=== PATIENT | female | born 1965 | race Caucasian/White ===

== ENCOUNTER 2021-10-22 06:03 | Inpatient (IN) ==
[2021-10-22] MEDS ORDERED: ceFAZolin 2,000 MG in Water for inj. (sterile) 20 ML IVP ONE (06:27)
[2021-10-22] MEDS ORDERED: Ringers Solution, Lactated 1,000 ML IVC SCH (06:30)
[2021-10-22] MEDS ORDERED: *HR* Propofol 200 MG/20 ML VIAL IVP ONE (06:54)
[2021-10-22] MEDS ORDERED: *HR* Midazolam HCl 2 MG/2 ML VIAL ONE (06:54)
[2021-10-22] MEDS ORDERED: *HR* FentaNYL (PF) 100 MCG/2 ML VIAL ONE ×2 (06:54→08:04)
[2021-10-22] MEDS ORDERED: *HR* HYDROmorphone PF 0.5 MG/0.5 ML SYRINGE IVP PRN (06:59)
[2021-10-22] MEDS ORDERED: Ondansetron 4 MG/2 ML VIAL IVP PRN ×2 (06:59→11:50)
[2021-10-22] MEDS ORDERED: *HR* FentaNYL (PF) 100 MCG/2 ML VIAL IVP PRN (06:59)
[2021-10-22] MEDS ORDERED: Insulin Human Regular 12 UNIT in 0.9 % Sodium Chloride 10 ML IV ONE (07:04)
[2021-10-22] MEDS ORDERED: *HR* Rocuronium Bromide 50 MG/5 ML VIAL ONE ×2 (07:15→09:16)
[2021-10-22] MEDS ORDERED: Lidocaine -MPF 2% 2 ML VIAL ONE (07:15)
[2021-10-22] MEDS ORDERED: *HR* Succinylcholine 200 MG/10 ML VIAL IVP ONE (07:15)
[2021-10-22] MEDS ORDERED: *HR* Phenylephrine 10 MG/ML VIAL ONE (07:15)
[2021-10-22] MEDS ORDERED: Ondansetron 4 MG/2 ML VIAL ONE (07:15)
[2021-10-22] MEDS ORDERED: Acetaminophen IV 1,000 MG/100 ML BAG IVPB ONE (07:46)
[2021-10-22] MEDS ORDERED: *HR* Vasopressin 20 UNIT/ML VIAL ONE (07:46)
[2021-10-22] MEDS ORDERED: Albumin Human 5% 0 GM/0 ML IV.SOLN ONE (07:46)
[2021-10-22] MEDS ORDERED: CeFAZolin Syr 2,000MG/20 ML 2,000 MG/20 ML SYRINGE IVPB ONE (08:00)
[2021-10-22] MEDS ORDERED: *HR* HYDROMORPHONE 2 MG/ML VIAL ONE (09:44)
[2021-10-22] MEDS ORDERED: Ketorolac 30 MG/ML VIAL ONE (10:14)
[2021-10-22] MEDS ORDERED: Dextrose 4 GM Chewable Tablets PO PRN ×2 (11:50)
[2021-10-22] MEDS ORDERED: Naloxone 0.4 MG/ML INJ IVP PRN (11:50)
[2021-10-22] MEDS ORDERED: D5% in Water 1,000 ML IVC PRN (11:50)
[2021-10-22] MEDS ORDERED: *HR* Dextrose 50 % in Water (Syg) 50 ML SYRINGE IVP PRN (11:50)
[2021-10-22] MEDS: 0.9 % Sodium Chloride 1,000 ML IVC SCH (12:02)
[2021-10-22] MEDS: Ketorolac 30 MG/ML VIAL IVP SCH ×3 (12:10→23:56)
[2021-10-22] MEDS: *HR* HYDROcodone/Acet 5/325 mg TABLET PO PRN ×3 (12:13→20:59)
[2021-10-22] MEDS: Ipratropium/Albuterol Neb 3 ML IH SCH ×4 (14:20→23:59)
[2021-10-22] MEDS: Gabapentin 300 MG CAPSULE PO SCH ×2 (14:45→19:54)
[2021-10-22] MEDS: *HR* Heparin 5,000 UNIT/ML VIAL SQ SCH ×2 (14:45→20:59)
[2021-10-22] MEDS: Nicotine 2 MG GUM BC PRN ×2 (16:34→19:54)
[2021-10-22] MEDS: Insulin LISPRO 300 UNITS/3 ML VIAL SUBQ SCH ×3 (16:39→21:00)
[2021-10-22] MEDS: Nicotine 21 MG PATCH.TD24 TD SCH (16:55)
[2021-10-22] MEDS ORDERED: Insulin Human Regular 10 UNIT in 0.9 % Sodium Chloride 10 ML IV ONE (18:22)
[2021-10-22] MEDS: Famotidine 20 MG TABLET PO SCH (19:54)
[2021-10-22] MEDS: Sennosides/Docusate Sodium TABLET PO SCH (20:47)
[2021-10-22] MEDS ORDERED: *HR* HYDROcodone/Acet 7.5/325 mg TABLET PO PRN (21:25)
[2021-10-22] MEDS: *HR* HYDROmorphone (PF) 1 MG/ML SYRINGE IVP PRN (21:32)
[2021-10-23] MEDS: 0.9 % Sodium Chloride 1,000 ML IVC SCH (03:53)
[2021-10-23] MEDS: Ipratropium/Albuterol Neb 3 ML IH SCH ×6 (04:20→23:31)
[2021-10-23 05:14] LABS: BUN/Creatinine Ratio 21 (6-26); Blood Urea Nitrogen 14 mg/dL (6-20); Calcium 9.2 mg/dL (8.6-10.3); Carbon Dioxide 21 mEq/L (23-29); Chloride 100 mEq/L (98-107); Glucose 299 mg/dL (70-105); Magnesium 1.9 mg/dL (1.6-2.6); Osmolality,Calculated 282 (280-300); Sodium 130 mEq/L (136-145); eGFR For African Americans > 60 (> 60); eGFR For Non-African Americans > 60 (> 60)
[2021-10-23 05:29] LABS: Hematocrit 35.4 % (35.3-44.9); Hemoglobin 11.7 g/dL (11.5-15.4); Mean Corpuscular HGB Conc 33.1 g/dL (31.6-35.5); Mean Corpuscular Hemoglobin 29.8 pg (28.0-33.3); Mean Corpuscular Volume 90.1 fL (83.0-100.0); Mean Platelet Volume 9.7 fL (9.4-12.4); Platelet Count 313 K/mcL (140-400); Red Blood Count 3.93 M/mcL (3.82-4.97); Red Cell Distribution Width 13.4 % (11.5-14.5); White Blood Count 15.2 K/mcL (4.3-11.1)
[2021-10-23] MEDS: Ketorolac 30 MG/ML VIAL IVP SCH ×3 (06:41→17:11)
[2021-10-23] MEDS: *HR* HYDROmorphone (PF) 1 MG/ML SYRINGE IVP PRN ×2 (06:41→20:02)
[2021-10-23] MEDS: *HR* Heparin 5,000 UNIT/ML VIAL SQ SCH ×3 (06:41→20:01)
[2021-10-23] MEDS: Nicotine 2 MG GUM BC PRN ×3 (06:41→20:02)
[2021-10-23] MEDS: *HR* Glimepiride 2 MG TABLET PO SCH (09:19)
[2021-10-23] MEDS: *HR* Pioglitazone 30 MG TABLET PO SCH (09:19)
[2021-10-23] MEDS: Gabapentin 400 MG CAPSULE PO SCH ×3 (09:19→20:03)
[2021-10-23] MEDS: Sennosides/Docusate Sodium TABLET PO SCH ×2 (09:20→20:03)
[2021-10-23] MEDS: Insulin LISPRO 300 UNITS/3 ML VIAL SUBQ SCH ×4 (09:20→20:02)
[2021-10-23] MEDS: Famotidine 20 MG TABLET PO SCH ×2 (09:20→20:02)
[2021-10-23] MEDS: *HR* OxyCODONE/APAP 10/325 TABLET PO PRN (09:24)
[2021-10-23] MEDS: Nicotine 21 MG PATCH.TD24 TD SCH (10:34)
[2021-10-24] MEDS: Ketorolac 30 MG/ML VIAL IVP SCH ×2 (01:07→06:36)
[2021-10-24] MEDS: Ipratropium/Albuterol Neb 3 ML IH SCH ×3 (03:51→11:50)
[2021-10-24 03:54] LABS: Hemoglobin 12.3 g/dL (11.5-15.4); Mean Corpuscular HGB Conc 32.4 g/dL (31.6-35.5); Mean Corpuscular Hemoglobin 29.6 pg (28.0-33.3); Mean Corpuscular Volume 91.3 fL (83.0-100.0); Platelet Count 317 K/mcL (140-400); Red Blood Count 4.16 M/mcL (3.82-4.97); Red Cell Distribution Width 13.7 % (11.5-14.5)
[2021-10-24 04:12] LABS: BUN/Creatinine Ratio 21 (6-26); Blood Urea Nitrogen 14 mg/dL (6-20); Calcium 9.9 mg/dL (8.6-10.3); Carbon Dioxide 21 mEq/L (23-29); Chloride 99 mEq/L (98-107); Glucose 285 mg/dL (70-105); Osmolality,Calculated 285 (280-300); Potassium 3.9 mEq/L (3.5-5.1); Sodium 132 mEq/L (136-145); eGFR For African Americans > 60 (> 60); eGFR For Non-African Americans > 60 (> 60)
[2021-10-24 04:49] VITALS: TEMP 98.2
[2021-10-24] MEDS: *HR* Heparin 5,000 UNIT/ML VIAL SQ SCH (06:36)
[2021-10-24 07:39] VITALS: BP 132/93; PULSE 94
[2021-10-24] MEDS: Nicotine 21 MG PATCH.TD24 TD SCH (08:54)
[2021-10-24] MEDS: Famotidine 20 MG TABLET PO SCH (08:55)
[2021-10-24] MEDS: *HR* Glimepiride 2 MG TABLET PO SCH (08:55)
[2021-10-24] MEDS: Sennosides/Docusate Sodium TABLET PO SCH (08:55)
[2021-10-24] MEDS: *HR* Pioglitazone 30 MG TABLET PO SCH (08:55)
[2021-10-24] MEDS: *HR* OxyCODONE/APAP 10/325 TABLET PO PRN (08:55)
[2021-10-24] MEDS: Gabapentin 400 MG CAPSULE PO SCH (08:55)
[2021-10-24] MEDS: Insulin LISPRO 300 UNITS/3 ML VIAL SUBQ SCH ×2 (08:56→12:07)
[2021-10-24] MEDS ORDERED: OXYCODONE HCL PO SCH (11:45)
[2021-10-24] MEDS ORDERED: Dulaglutide [Trulicity] 1.5 MG/0.5 ML Pen.Injctr SQ SCH (11:45)
[2021-10-24] MEDS ORDERED: ACETAMINOPHEN PO SCH (11:45)
[2021-10-24] MEDS ORDERED: [UNRECOGNIZED DRUG - OTHER] PO SCH (11:45)
[2021-10-24 11:57] VITALS: O2SAT 98
[2021-10-24] MEDS ORDERED: Famotidine 20 MG TABLET PO SCH (21:00)
[2021-10-25] MEDS ORDERED: amLODIPine 5 MG TABLET PO SCH (09:00)
[2021-10-25] MEDS ORDERED: Roflumilast [Daliresp] 500 MCG Tablet PO SCH (09:00)
== END 2021-10-24 13:45 | disposition home or self-care (01) | DRG 120 ==
LOC: SAMDAY 06:03 → 2NNU 11:42
PROVIDERS: ADMIT Thoracic Surgery (Cardiothoracic Vascular Surgery); ATTEND Thoracic Surgery (Cardiothoracic Vascular Surgery)